=== PATIENT | female | born 1975 | race Caucasian/White ===

== ENCOUNTER 2019-05-02 14:30 | Observation (INO) | payer OTHER ==
[~2019-05-02] VITALS: Ht 160 cm; Wt 65.8 kg
[2019-05-02 14:41] VITALS: Ht 160 cm; Wt 65.8 kg
--- NOTE | 2019-05-02 14:58 | NUR ---
PT PRESENTS TO ED BIB AMBULANCE WITH ALOC S/P RUNNING 4 MILES IN A [place]. PER EMS PT [facility] WAS [facility] IN R[facility]TE TO HOSPITAL. EMS STS PT O2 SAT WAS IN LOW 80'S ON ROUTE TO ED AND WAS BETTER AFTER BEING ON 6L O2. WHILE TRIAGING, PT BEGAN TO ANSWER ALL QUESTIONS APPROPRIATELY. PT STS SHE DID NOT DRINK ANY WATER DURING RUN AND TOOK "DIET PILLS" PRIOR TO RUN. PT SKIN HOT TO TOUCH AND DIAPHORETIC. COOLING MEASURES PUT IN PLACE. PT ON FULL CM, AAOX4, RESP E/U, AT BEDSIDE, CALL LIGHT WITHIN REACH.
[2019-05-02 15:13] LABS: BASOPHIL % 0.2 % (0-2); PLATELET COUNT 286 x10^3mcL (130-400); RED CELL DISTRIBUTION WIDTH 13.3 % (11.5-14.5)
--- NOTE | 2019-05-02 15:20 | NUR ---
PER PT WAS TALKING QUICKLY AND NOT MAKING SENSE ABOUT 5MINS AGO. UPON ENTERING THE ROOM PT APPEARED COHERENT, ANSWERED ALL QUESTIONS APPROPRIATE, SPEECH IS NORMAL.
[2019-05-02 15:30] LABS: CARBON DIOXIDE 23.6 mmol/L (21-32); CREATININE SERUM 1.5 mg/dL (0.6-1.0); POTASSIUM SERUM 3.7 mmol/L (3.5-5.1)
[2019-05-02 15:35] LABS: ALBUMIN 3.9 g/dL (3.4-5.0); BILIRUBIN TOTAL 0.49 mg/dL (0.20-1.00); TOTAL PROTEIN, SERUM 7.8 g/dL (6.4-8.2)
--- NOTE | 2019-05-02 16:42 | NUR ---
PT GIVEN BLANKET PER REQUEST. PT TEMP CURRENTLY 98.0 F. PT LAYING ON GURNEY IN POSITION OF COMFORT, AAOX4, RESP E/U, NO ACUTE DISTRESS NOTED AT THIS TIME.
--- NOTE | 2019-05-02 17:56 | NUR ---
PT SITTING UP TALKING WITH COWORKER, STATING "I FEEL SO MUCH BETTER". PT AAOX4, RESP E/U, NO ACUTE DISTRESS NOTED AT THIS TIME
--- NOTE | 2019-05-02 18:23 | NUR ---
PT AMBULATED TO RESTROOM, STEADY GAIT NOTED.
--- NOTE | 2019-05-02 19:12 | NUR ---
REPORT RECEIVED FORM MATT PATTERSON I WILL BE RESUMING CARE OF PT AT THIS TIME
--- NOTE | 2019-05-02 19:17 | NUR ---
PT IN POSITION OF COMFORT RESPS E/U CALL LIGHT WITHIN REACH AT BEDSIDE
--- NOTE | 2019-05-02 19:20 | NUR ---
REPORT GIVEN TO LEONARDO ARANGO TO ASSUME CARE OF PT.
--- NOTE | 2019-05-02 19:55 | NUR ---
RECEIVED PT VIA [facility] FROM E/D, ACCOMPANIED BY RN, TRANSPORTER, AND , UBALDO FISHER. PT A/A/O X 4, CALM, COOPERATIVE; C/O CONSTANT PRESSURE H/A 3/10, RELIEVED BY PAIN MEDICATION. AMBULATORY, NO GAIT OR BALANCE IMPAIRMENT NOTED PT WALKED FROM [facility] TO BED. ON TELE # 7, NSR, HR 78, DENIES CHEST PAIN OR DISCOMFORT AT THIS TIME. NO ACUTE RESPIRATORY DISTRESS NOTED. ABD SOFT, ROUND, NON-TENDER, NORMOACTIVE BOWEL SOUNDS X 4 QUADS, LAST BM 05/02/19, [place]. IV SITE LAC 20G, CDI. ORIENTED PT AND TO ROOM, BED CONTROLS, CALL LIGHT SYSTEM. SIDE RAILS UP X 2, BED IN LOW POSITION. WILL ENDORSE TO LEONARDO DU.
[2019-05-02 20:29] VITALS: BP 108/75
--- NOTE | 2019-05-02 20:34 | NUR ---
SPOKE TO DR VARGAS FOR ANY FURTHER ORDERS HE MAY HAVE. DR VARGAS STATED NO FURTHER AT THIS TIME.
--- NOTE | 2019-05-03 00:07 | NUR ---
PT IS RESTING IN BED WITH EYES CLOSED. NO ACUTE DISTRESS NOTED. NO COMPLAINT OF PAIN AT THIS TIME. PT IS CURRENTLY NPO, CALM AND COOPERATIVE WITH CARE, IV IS INFUSING AND INTACT AT THIS TIME. SAFETY AND COMFORT MEASURES MAINTAINED, BED IN LOWEST POSITION, CALL LIGHT WITHIN REACH.
--- NOTE | 2019-05-03 02:18 | NUR ---
PT IS RESTING IN BED WITH EYES CLOSED. NO ACUTE DISTRESS NOTED. NO S/S OF PAIN NOTED. SAFETY AND COMFORT MEASURES MAINTAINED, BED IN LOWEST POSITION, CALL LIGHT WITHIN REACH.
--- NOTE | 2019-05-03 04:20 | NUR ---
PT IS RESTING IN BED WITH EYES CLOSED, NO ACUTE DISTRESS NOTED. NO S/S OF PAIN NOTED. SAFETY AND COMFORT MEASURES MAINTAINED, BED IN LOWEST POSITION, CALL LIGHT WITHIN REACH.
--- NOTE | 2019-05-03 05:04 | NUR ---
PT HAS RESTED IN INTERMITTENT INTERVALS THROUGHOUT THE SHIFT. PT HAS BEEN CALM AND COOPERATIVE WITH CARE. PT HAS BEEN NPO SINCE ADMISSION, PT HAS BEEN ALERT AND ORIENTED X4, NO ACUTE DISTRESS NOTED. NO COMPLAINT OF PAIN AT THIS TIME. SAFETY AND COMFORT MEASURES MAINTAINED, BED IN LOWEST POSITION, CALL LIGHT WITHIN REACH. WILL ENDORSE CONTINUITY OF CARE TO THE ONCOMING RN.
[2019-05-03 05:37] VITALS: BP 100/55
[2019-05-03 06:46] LABS: BASOPHIL % 0.2 % (0-2); PLATELET COUNT 211 x10^3mcL (130-400); RED CELL DISTRIBUTION WIDTH 13.6 % (11.5-14.5)
--- NOTE | 2019-05-03 07:05 | NUR ---
RECEIVED BEDSIDE REPORT FROM THERMITE WELDER NURSE. PATIENT IS STABLE, RESTING COMFORTABLY IN BED. NO APPARENT SIGNS OF SOB, RESPIRATORY DISTRESS, OR PAIN. PATIENT IS ALERT AND ORIENTED X4. IV TO LAC IS INFUNSING WELL, NO SIGNS OF REDNESS, INFUSING NS AT 80 ML/HR. ON ROOM AIR. DENIES PAIN OR DIZZINESS. CALL LIGHT WITHIN REACH. BED IN LOW POSITION, BED RAILS UP X2. QUESTIONS AND CONCERNS ADDRESSED. SAFETY PRECUTIONS IN PLACE.
[2019-05-03 07:06] LABS: CARBON DIOXIDE 27.4 mmol/L (21-32); CHLORIDE SERUM 107 mmol/L (98-107); CREATININE SERUM 0.9 mg/dL (0.6-1.0); GFR1 > 60 mL/min; GLUCOSE SERUM 93 mg/dL (74-106); POTASSIUM SERUM 3.9 mmol/L (3.5-5.1); SODIUM SERUM 142 mmol/L (136-145)
[2019-05-03 07:07] LABS: CALCIUM 8.8 mg/dL (8.5-10.1)
--- NOTE | 2019-05-03 07:30 | NUR ---
PATIENT ASSESSMENT COMPLETED, PLEASE SEE PROBLEM FOCUSED CARE FOR DETAILS.
--- NOTE | 2019-05-03 07:33 | NUR ---
DR PRINCE SEARCH DEVELOPER AT BEDSIDE FOR CONSULT.
--- NOTE | 2019-05-03 08:41 | NUR ---
ADMINISTERED MORNING MEDS. PATIENT TOLORATED WELL. NO APPARENT SIGNS OF SOB, OR RESPIRATORY DISTRESS. PATIENT DENIES PAIN AT THIS TIME. PATIENT DENIES OTHER NEEDS AT THIS TIME. SAFETY PRECAUTIONS IN PLACE. CALL LIGHT WITHIN REACH.
--- NOTE | 2019-05-03 10:14 | NUR ---
PATIENT IS STABLE, NO APPARENT SIGNS OF SOB, RESPIRATORY DISTRESS. PATIENT DENIES PAIN AT THIS TIME. SPONGE DIVER AT BEDSIDE CARDIAC ECHO IN PROGRESS. QUESTIONS AND CONCERNS ADDRESSED, SAFETY PRECAUTIONS IN PLACE.
[2019-05-03 10:32] VITALS: BP 105/58
--- NOTE | 2019-05-03 12:23 | NUR ---
PATIENT IS STABLE, NO APPARENT SIGNS OF PAIN, SOB, OR RESPIRATORY DISTRESS. PATIENT DENIES CHEST PAIN OR DIZZINESS. PATIENT DENIES OTHER NEEDS AT THIS TIME. SAFETY PRECAUTION SIN PLACE.
[2019-05-03 12:27] VITALS: BP 109/69
--- NOTE | 2019-05-03 14:32 | NUR ---
TECH AT BEDSIDE FOR US OF CAROTID ARTERIES.
--- NOTE | 2019-05-03 14:51 | NUR ---
SPOKE WITH DR VALENTINE ABOUT PATIENT DIET. DR VALENTINE STATED TO PLACE PATIENT ON REGULAR DIET. VIA TELEPHONE ORDER.
--- NOTE | 2019-05-03 16:12 | NUR ---
PAGED DR VALENTINE TO NOTIFY PATIENT HAS BEEN CLEARED BY DR PRINCE FROM CARDIOLOGY STAND POINT. WAITING FOR DR VALENTINE TO CALL BACK.
--- NOTE | 2019-05-03 17:17 | NUR ---
PATIENT STABLE, NO APPARENT SIGNS OF PAIN, SOB, OR RESPIRATORY DISTRESS. PATIENT IS ON ROOM AIR. IV INFUSING WELL, NO REDNESS NOTED. PATIENT DENIES OTHER NEEDS AT THIS TIME. FAMILY AT BEDSIDE. CALL LIGHT WITHIN REACH, BED IN LOW POSITION, BED RAILS UP X2. FAMILY AT BEDSIDE. QUESTIONS AND CONCERNS ADDRESSED, SAFETY PRECAUTIONS IN PLACE.
[2019-05-03 17:55] VITALS: BP 127/66
--- NOTE | 2019-05-03 18:28 | NUR ---
PATIENT IS STABLE. NO APPERENT SIGNS OF SOB, OR RESPIRATORY DISTRESS. PATIENT DENIES PAIN OR DIZZINESS AT THIS TIME. IV TO LAC 20G INFUSING WELL. NS AT 80ML/HR. NO REDNESS NOTED. PATIENT IS IN ROOM AIR. RESPIRATIONS ARE EVEN, NOT LABORED. SKIN IS INTACT. BED IN LOW POSITION, BED RAILS UP X2. FAMILY AT BEDSIDE. AT BEDSIDE. PATIENT DENIES OTHER NEEDS AT THIS TIME. SAFETY PRECAUTIONS IN PLACE. WILL ENDORSE CARE TO SUPERVISOR CONCRETE STONE FINISHING NURSE.
--- NOTE | 2019-05-03 19:00 | NUR ---
RECEIVED PT FROM DAY SHIFT RN. PT IS AA&O X 4 AND ABLE TO FOLLOW COMMANDS. PT DENIES CHEST PAIN OR SHORTNESS OF BREATH ON ROOM AIR. THERE ARE NO USE OF ACCESSORY MUSCLES OR LABORED BREATHING ON ASSESSMENT. THERE IS A LAC IV THAT IS CLEAN DRY AND INTACT AT THIS TIME. TELE MONITOR IS IN PLACE. SAFETY MEASURES ARE IN PLACE. WILL CONTINUE TO MONITOR.
--- NOTE | 2019-05-03 19:09 | NUR ---
ENDORSED CARE TO CERTIFIED CREDIT COUNSELOR NURSE VALERY.
[2019-05-03 20:04] VITALS: BP 127/66
--- NOTE | 2019-05-03 20:07 | NUR ---
MD AT BEDSIDE FOR PT EDUCATION ON DISCHARGE. PT AWARE OF DISCHARGE. WILL CARRY OUT PER ORDERS.
== END 2019-05-03 21:37 | disposition home or self-care (01) | DRG 641 ==
LOC: ED 14:30 → DU 18:47
PROVIDERS: Emergency Medicine; ADMIT Internal Medicine
DX: E86.0 Dehydration (principal); N17.9 Acute kidney failure, unspecified; R55 Syncope and collapse; Z68.25 Body mass index [BMI] 25.0-25.9, adult; X30.XXXA Exposure to excessive natural heat, initial encounter; Y93.02 Activity, running; Y92.410 Unspecified street and highway as the place of occurrence of the external cause; Y99.8 Other external cause status
CPT/HCPCS: 36600; 82962; G0378; J1644; J7030; Q0092